=== PATIENT | female | born 1960 | race American Indian/Alaskan Native ===

== ENCOUNTER 2016-05-30 11:09 | Inpatient (IN) | payer SELFPAY ==
--- NOTE | 2016-05-30 11:32 | Emergency Department Report ---
Chief Complaint: Chest Pain Stated Complaint: CHEST PAIN Time Seen by Provider: 05/30/16 11:29 - HPI History of Present Illness: 56 y/o female complain of chest pain x 2 days .pt complain of nausea with headache and dizziness at present . - ROS Review of Systems: Per HPI - Exam Vital Signs: Vital Signs 05/30/16 11:22 Temperature 98.3 F Pulse Rate 85 Respiratory 26 H Rate Blood Pressure 152/89 O2 Sat by Pulse 100 Oximetry Physical Exam: GENERAL: The patient is well-developed and well-nourished. Patient is in NAD. HENT: Normocephalic. Atraumatic. Patient has moist mucous membranes. Throat: No erythema, swelling or exudates. EYES: Extraocular motions are intact, PERRL NECK: Supple. No meningitic signs are noted. There is no adenopathy noted. CHEST/LUNGS: Clear to auscultation bilaterally. No wheezing, rales or rhonchi noted. There is no respiratory distress noted. HEART/CARDIOVASCULAR: Regular rate and rhythm. Normal S1 S2. No murmurs, rubs , clicks, or gallops. ABDOMEN: Abdomen is soft, nontender.. Bowel sounds normoactive. There is no abdominal distention. Negative rebound tenderness. : Deferred. SKIN: There is no rash. There is no edema. There is no diaphoresis. NEURO: The patient is A&Ox3. The patient has no focal neurologic deficits. MUSCULOSKELETAL: There is no tenderness or deformity. There is no limitation range of motion. PSYCH: Pt has appropriate mood and affect. MSE screening note: Focused history and physical exam performed. Due to findings the following was ordered: ED Disposition for MSE Condition: Stable
[2016-05-30 11:53] LABS: Basophils % (Auto) 0.2 % (0.0-1.8); Eosinophils % (Auto) 1.6 % (0.0-4.3); Hematocrit 39.1 % (30.3-42.9); Hemoglobin 12.8 gm/dl (10.1-14.3); Mean Corpuscular HGB Conc 33 % (30-34); Mean Corpuscular Hemoglobin 27 pg (28-32); Mean Corpuscular Volume 84 fl (79-97); Platelet Count 266 K/mm3 (140-440); Red Blood Count 4.69 M/mm3 (3.65-5.03); Red Cell Distribution Width 15.2 % (13.2-15.2)
[2016-05-30 12:08] LABS: Anion Gap 20 mmol/L; Blood Urea Nitrogen 16 mg/dL (7-17); Calcium 9.6 mg/dL (8.4-10.2); Carbon Dioxide 27 mmol/L (22-30); Chloride 98.4 mmol/L (98-107); Glucose 96 mg/dL (65-100); Potassium 4.3 mmol/L (3.6-5.0); Sodium 141 mmol/L (137-145)
--- NOTE | 2016-05-30 12:14 | XRay Report ---
Chest 2 views. Findings: The heart and pulmonary vessels are normal. The lungs are clear. There is no pleural fluid. Impression: No acute findings.
[2016-05-30] MEDS ORDERED: TYLENOL ONE (21:49)
[2016-05-30] MEDS ORDERED: TYLENOL PO ONE (21:52)
[2016-05-30] MEDS ORDERED: ALUM-MAG HYDROX-SIMETH 200-200-20MG/5ML PO ONE (23:28)
[2016-05-30] MEDS ORDERED: MORPHINE IV ONE (23:28)
[2016-05-30] MEDS ORDERED: PEPCID IV ONE (23:28)
--- NOTE | 2016-05-30 23:29 | Emergency Department Report ---
ED General Adult HPI - General Chief complaint: Chest Pain Stated complaint: CHEST PAIN Time Seen by Provider: 05/30/16 23:18 Source: patient, RN notes reviewed Mode of arrival: Ambulatory Limitations: No Limitations - History of Present Illness Initial comments: This is a 56-year-old female, previously unknown to me. She has a past medical history of GERD, obesity, small bowel infection, possible hypertension. The patient presents to the ER complaining of chest pain. The chest pain is central. It radiates to the left upper extremity. It is associated with nausea , shortness of breath and diaphoresis. There is no leg pain. There is no leg swelling. No recent trips greater than 4 hours. No recent hospitalizations. No recent stress test. Does not use cocaine. Doesn't have a family history of heart disease that she is aware of. Patient has no lower abdominal pain, she is defecating normally. -: Gradual Location: chest Severity scale (0 -10): 6 Consistency: intermittent Improves with: rest Worsens with: movement Associated Symptoms: chest pain, diaphoresis, loss of appetite, malaise, nausea/ vomiting, shortness of breath, weakness - Related Data Home Medications Medication Instructions Recorded Confirmed Last Taken Esomeprazole Magnesium [Nexium] 40 mg PO DAILY 07/09/13 05/31/16 04/10/15 HCTZ 12.5 mg PO DAILY 05/31/16 05/31/16 Unknown Allergies Allergy/AdvReac Type Severity Reaction Status Date / Time No Known Allergies Allergy Verified 04/11/15 02:58 ED Review of Systems ROS: Stated complaint: CHEST PAIN Other details as noted in HPI Constitutional: diaphoresis, malaise, weakness Eyes: denies: eye discharge ENT: denies: epistaxis Respiratory: cough Cardiovascular: chest pain Gastrointestinal: nausea Genitourinary: as per HPI Musculoskeletal: denies: back pain Neurological: weakness Psychiatric: as per HPI, anxiety ED Past Medical Hx - Past Medical History Previous Medical History?: Yes Hx GERD: Yes Additional medical history: gastritis, SBO - Surgical History Past Surgical History?: Yes Hx Cholecystectomy: Yes Additional Surgical History: Hysterectomy - Social History Smoking Status: Never Smoker Substance Use Type: Non Opiate Pain, Prescribed - Medications Home Medications: Home Medications Medication Instructions Recorded Confirmed Last Taken Type Esomeprazole Magnesium [Nexium] 40 mg PO DAILY 07/09/13 05/31/16 04/10/15 History HCTZ 12.5 mg PO DAILY 05/31/16 05/31/16 Unknown History ED Physical Exam - General Limitations: No Limitations General appearance: obese - Head Head exam: Present: atraumatic, normocephalic - Eye Eye exam: Present: normal appearance, EOMI. Absent: nystagmus - ENT ENT exam: Present: normal exam, normal orophraynx, mucous membranes moist - Neck Neck exam: Present: normal inspection, full ROM. Absent: tenderness, meningismus - Respiratory Respiratory exam: Present: normal lung sounds bilaterally, chest wall tenderness. Absent: respiratory distress, wheezes, rales, rhonchi, stridor - Cardiovascular Cardiovascular Exam: Present: regular rate, normal rhythm, normal heart sounds. Absent: bradycardia, tachycardia, irregular rhythm, systolic murmur, diastolic murmur, rubs, gallop - GI/Abdominal GI/Abdominal exam: Present: soft, normal bowel sounds. Absent: distended, tenderness, guarding, rebound, rigid, pulsatile mass - Extremities Exam Extremities exam: Present: normal inspection, full ROM, normal capillary refill. Absent: tenderness, pedal edema, joint swelling, calf tenderness - Back Exam Back exam: Present: normal inspection, full ROM. Absent: tenderness, CVA tenderness (R), CVA tenderness (L), muscle spasm, paraspinal tenderness, vertebral tenderness - Neurological Exam Neurological exam: Present: alert, oriented X3, other (Extraocular movements intact. Tongue midline. No facial droop. Facial sensation intact to light touch in the V1, V2, V3 distribution bilaterally. 5 and 5 strength in 4 extremities.. Sensation is intact to light touch in 4 extremities.). Absent: motor sensory deficit - Psychiatric Psychiatric exam: Present: normal affect, normal mood - Skin Skin exam: Present: warm, dry, intact, normal color. Absent: rash ED Course Vital Signs 05/30/16 05/30/16 05/30/16 11:22 21:48 23:49 Temperature 98.3 F 98.0 F Pulse Rate 85 64 64 Respiratory 26 H 18 16 Rate Blood Pressure 152/89 156/91 Blood Pressure 125/60 [Left] O2 Sat by Pulse 100 98 95 Oximetry 05/31/16 05/31/16 00:39 01:26 Temperature Pulse Rate 80 75 Respiratory 16 Rate Blood Pressure 148/70 Blood Pressure 107/63 [Left] O2 Sat by Pulse 95 Oximetry - Reevaluation(s) Reevaluation #1: 05/31/16 00:19 Differential diagnosis: Costochondritis, GERD/reflux, acute coronary syndrome, pneumonia Assessment and plan: 56-year-old obese -[place] female with probable hypertension with concerning chest pain symptoms and markedly abnormal EKG, without prior for comparison. There are no pulmonary embolus or DVT risk factors, and she is low risk by well's criteria. I appreciate the fact that the patient has 3 negative troponins, however her description of symptoms is somewhat concerning, her initial EKG demonstrated a left axis, with nonspecific T-wave abnormality, and left anterior fascicular block. A repeat EKG demonstrated the same thing, with some prominent T-wave inversions in the anteroseptal leads. Given her clinical ambiguity, and nonspecific dynamic EKG findings, she will be admitted for a chest pain ACS risk stratification. The Hospital physician, Dr. Wren, accepts the patient to his service. ED Medical Decision Making - Lab Data Result diagrams: 05/30/16 11:36 05/30/16 11:36 Vital Signs 05/30/16 05/30/16 05/30/16 11:22 21:48 23:49 Temperature 98.3 F 98.0 F Pulse Rate 85 64 64 Respiratory 26 H 18 16 Rate Blood Pressure 152/89 156/91 Blood Pressure 125/60 [Left] O2 Sat by Pulse 100 98 95 Oximetry Lab Results 05/30/16 05/30/16 05/30/16 Range/Units 11:36 11:36 15:07 WBC 9.0 (4.5-11.0) K/mm3 RBC 4.69 (3.65-5.03) M/mm3 Hgb 12.8 (10.1-14.3) gm/dl Hct 39.1 (30.3-42.9) % MCV 84 (79-97) fl MCH 27 L (28-32) pg MCHC 33 (30-34) % RDW 15.2 (13.2-15.2) % Plt Count 266 (140-440) K/mm3 Lymph % (Auto) 34.1 (13.4-35.0) % Tyler % (Auto) 8.4 H (0.0-7.3) % Eos % (Auto) 1.6 (0.0-4.3) % Baso % (Auto) 0.2 (0.0-1.8) % Lymph # 3.1 (1.2-5.4) K/mm3 Tyler # 0.8 (0.0-0.8) K/mm3 Eos # 0.1 (0.0-0.4) K/mm3 Baso # 0.0 (0.0-0.1) K/mm3 Seg Neutrophils % 55.7 (40.0-70.0) % Seg Neutrophils # 5.0 (1.8-7.7) K/mm3 Sodium 141 (137-145) mmol/L Potassium 4.3 (3.6-5.0) mmol/L Chloride 98.4 (98-107) mmol/L Carbon Dioxide 27 (22-30) mmol/L Anion Gap 20 mmol/L BUN 16 (7-17) mg/dL Creatinine 1.0 (0.7-1.2) mg/dL Estimated GFR > 60 ml/min BUN/Creatinine Ratio 16.00 % Glucose 96 (65-100) mg/dL Calcium 9.6 (8.4-10.2) mg/dL Troponin T < 0.010 < 0.010 (0.00-0.029) ng/mL 05/30/16 Range/Units 18:18 WBC (4.5-11.0) K/mm3 RBC (3.65-5.03) M/mm3 Hgb (10.1-14.3) gm/dl Hct (30.3-42.9) % MCV (79-97) fl MCH (28-32) pg MCHC (30-34) % RDW (13.2-15.2) % Plt Count (140-440) K/mm3 Lymph % (Auto) (13.4-35.0) % Tyler % (Auto) (0.0-7.3) % Eos % (Auto) (0.0-4.3) % Baso % (Auto) (0.0-1.8) % Lymph # (1.2-5.4) K/mm3 Tyler # (0.0-0.8) K/mm3 Eos # (0.0-0.4) K/mm3 Baso # (0.0-0.1) K/mm3 Seg Neutrophils % (40.0-70.0) % Seg Neutrophils # (1.8-7.7) K/mm3 Sodium (137-145) mmol/L Potassium (3.6-5.0) mmol/L Chloride (98-107) mmol/L Carbon Dioxide (22-30) mmol/L Anion Gap mmol/L BUN (7-17) mg/dL Creatinine (0.7-1.2) mg/dL Estimated GFR ml/min BUN/Creatinine Ratio % Glucose (65-100) mg/dL Calcium (8.4-10.2) mg/dL Troponin T < 0.010 (0.00-0.029) ng/mL - EKG Data When compared to previous EKG there are: previous EKG unavailable 05/31/16 00:22 EKG #1 demonstrates normal sinus, 76 bpm, left axis deviation, borderline left ventricular hypertrophy, nonspecific T-wave abnormality, not consistent with stemi sinus bradycardia, 59 bpm, left axis deviation, left anterior fascicular block, flattened T-wave in V2, T-wave inversion V3, V4, V5 and V6. - Radiology Data Radiology results: report reviewed, image reviewed X-ray chest within normal limits /negative for acute disease Critical care attestation.: If time is entered above; I have spent that time in minutes in the direct care of this critically ill patient, excluding procedure time. ED Disposition Clinical Impression: Chest pain, Abnormal EKG Disposition: OP ADMITTED IP TO THIS HOSP Is pt being admited?: Yes Condition: Good
[2016-05-31] MEDS ORDERED: BABY ASPIRIN PO ONE (00:21)
[2016-05-31] MEDS: NITROSTAT SL PRN ×2 (00:39→06:01)
--- NOTE | 2016-05-31 01:00 | Event Note ---
Date: 05/31/16
[2016-05-31] MEDS ORDERED: DILAUDID IV PRN (01:06)
[2016-05-31] MEDS ORDERED: DULCOLAX PR PRN (01:06)
[2016-05-31] MEDS ORDERED: ZOFRAN IV PRN (01:06)
[2016-05-31] MEDS ORDERED: TYLENOL PO PRN (01:06)
[2016-05-31] MEDS ORDERED: MILK OF MAGNESIA PO PRN (01:06)
[2016-05-31] MEDS ORDERED: MORPHINE IV ONE (01:09)
[2016-05-31] MEDS ORDERED: SODIUM CHLORIDE FLUSH SYRINGE 10 ML IV PRN (01:10)
[2016-05-31] MEDS ORDERED: ZOFRAN IV ONE (01:10)
[2016-05-31] MEDS ORDERED: MORPHINE ONE (01:11)
[2016-05-31 02:05] LABS: Creatine Kinase MB 1.3 ng/mL (0.0-4.0)
[2016-05-31 02:06] LABS: Creatine Kinase 93 units/L (30-135)
[2016-05-31] MEDS ORDERED: PEPCID IV ONE (02:34)
--- NOTE | 2016-05-31 02:35 | Admit Criteria Form ---
Admission Criteria Documentation: CARDIOLOGY GRG Clinical Indications for Admission to Inpatient Care ( Place 'X' for any and all applicable criteria): Hospital admission is needed for appropriate care of the patient because of ANY ONE of the following (1): [ ] I. Hemodynamic instability as indicated by ALL of the following (1)(2)(3) (4)(5) [ ]a) Vital signs or other findings not as expected for chronic patient condition or baseline [ ]b) Instability indicated by ANY ONE of the following: [ ]i) Hypotension [ ]ii) Symptomatic Tachycardia unresponsive to treatment ( e.g., analgesia, fluids, sedation as indicated) [ ]iii) Inadequate perfusion indicated by ANY ONE of the following: [ ] 1) Lactic acidosis (> 2 mmol/L) [ ] 2) New abnormal capillary refill (> 3 seconds) [ ] 3) Reduced urine output [ ] 4) New altered mental status [ ]iv) Orthostatic vital sign changes unresponsive to treatment (e.g., fluids) [ ]v) IV inotropic or vasopressor medication required to maintain adequate blood pressure or perfusion [ ] II. Severe heart failure as indicated by ANY ONE of the following(17)(18) [ ]a) Respiratory distress [ ]b) Hypotension [ ]c) Anasarca (refractory to outpatient therapy) [ ]d) Cardiac arrhythmias of immediate concern [ ]e) Myocardial ischemia [ ] III. Cardiac arrhythmias or findings of immediate concern indicated by ANY ONE of the following (19)(20): [ ] a) Heart rhythms that are inherently dangerous or unstable indicated by ANY ONE of the following (21)(22)(23): [ ] i) Resuscitated ventricular fibrillation or cardiac arrest [ ] ii) Ventricular escape rhythm [ ] iii) Sustained ventricular tachycardia (30 seconds or more of ventricular rhythm at greater than 100 beats per minute) [ ] iv) Nonsustained ventricular tachycardia and ANY ONE of the following: [ ] 1) Suspected cardiac ischemia as cause or consequence of ventricular tachycardia [ ] 2) In setting of acute myocarditis [ ] b) Unstable cardiac conduction defects indicated by ANY ONE of the following(23)(24)(25) [ ] i) Type II second-degree atrioventricular block [ ]ii) Third-degree atrioventricular block [ ]iii) New-onset left bundle branch block with suspected myocardial ischemia [ ]c) Any heart rhythm and ANY ONE of the following (21)(22)(26)(27) (28) [ ] i) Continuous long-term ECG monitoring needed (e.g., initiation of drug requiring monitoring for more than 24 hours) [ ] ii) Patient has automatic implanted cardioverter defibrillator that is repeatedly firing, malfunctioning, or in need of immediate adjustment of settings beyond the scope of ambulatory or observation care [ ]d) Heart rhythms of concern due to ANY ONE of the following: [ ] i) Hypotension [ ] ii) Respiratory distress [ ] iii) Association with other significant symptoms (e.g., bradycardia with syncope or ongoing dizziness, supraventricular tachycardia with chest pain (14)(15)(17) [ ] IV. Monitoring for cardiac contusion beyond the scope of observation care needed [A](30)(31)(32) [ ] V. Surgical or device complication (e.g., valve replacement complication , pacemaker dysfunction) (35)(41)(44)(45)(46) [ ] . Inpatient palliative care needed. [B](49) Also use Inpatient Palliative Care Criteria [ ] VII. Nonbacterial thrombotic (marantic) endocarditis (36)(43)(47)(48) [ X] VIII. Cardiology condition, symptom, or finding for which emergency and observation care has failed or are not considered appropriate. [ ] IX. Acute valvular disease requiring inpatient as indicated by ANY ONE of the following (41) [ ]a) Acute valvular regurgitation (42) [ ]b) Noninfectious valvulitis (43) [ ]c) Obstructive valve thrombosis [ ]d) Paravalvular leak [ ]e) Other significant valvular disorder remaining after emergency or observation level of care (as appropriate) [ ]X. Pericardial disease requiring inpatient treatment as indicated by ANY ONE of the following (33)(34)(35)(36)(37) [ ]a) Suspected tamponade (38)(39)(40) [ ]b) Hemopericardium [ ]c) Other significant pericardial disorder remaining after emergency or observation level of care (as appropriate) [ ] XI. Cardiac ischemia beyond scope of emergency and observation care. [ ] XII. Hypertension requiring inpatient treatment as indicated by ANY ONE of the following (6)(7)(8) [ ]a) SBP greater than 220 mm Hg or DBP greater than 120 mmHg despite treatment [ ]b) SBP greater than 140 mm Hg or DBP greater than 100 mm Hg with evidence of acute end organ damage as indicated by ANY ONE of the following [ ] i) Altered mental status [ ] ii) Acute renal failure as indicated by new onset of ANY ONE of the following (9)(10)(11)(12)(13) [ ]1) 3-fold rise in serum creatinine from baseline [ ]2) Serum creatinine greater than 4 mg/dL ( 354 micromoles/L) with acute rise greater than 0.5 mg/dL (44.2 micromoles/L) [ ]3) Reduction of more than 75% in estimated glomerular filtration rate from baseline [ ]4) Estimated glomerular filtration rate less than 35 mL/min/1.73m2 (0.59 mL/sec/1.73m2) in child up to 18 years of age [ ]5) Cessation of urine output indicated by ALL of the following [ ]A. Adequate volume status [ ]B. Inadequate urine output as indicated by ANY ONE of the following [ ]a. Urine output less than 0.3 mL/kg/hr for 24 hours [ ]b. Anuria (urine output less than 0.1 mL/kg/hr) for 12 hours [ ] iii) Aortic dissection [ ] iv) Myocardial Ischemia [ ] v) Left ventricular heart failure [ ]vi) Retinal Hemorrhage [ ]vii) Other significant finding [ ]c) Hypertension in child requiring inpatient treatment as indicated by ALL of the following(14)(15)(16) [ ] i) Outpatient treatment not effective, not available, or not appropriate [ ]ii) SBP or DBP greater than 95th percentile for age [ ]iii) Evidence of acute end organ damage as indicated by ANY ONE of the following [ ]1) Altered mental status [ ]2) Acute renal failure as indicated by new onset of ANY ONE of the following(9)(10)(11)(12)(13) [ ]A. 3-fold rise in serum creatinine from baseline [ ]B. Serum creatinine greater than 4 mg/dL (354 micromoles/L) with acute rise greater than 0.5 mg/dL (44.2 micromoles/L) [ ]C. Reduction of more than 75% in estimated glomerular filtration rate from baseline [ ]D. Estimated glomerular filtration rate less than 35 mL/min/1.73m2 (0.59 mL/sec/1.73m2) in child up to 18 years of age [ ]E. Cessation of urine output indicated by ALL of the following [ ]a. Adequate volume status [ ]b. Inadequate urine output as indicated by ANY ONE of the following [ ]i) Urine output less than 0.3 mL/kg/hr for 24 hours [ ]ii) Anuria ( urine output less than 0.1 mL/kg/hr) for 12 hours [ ]3) Severe headache [ ]4) Visual disturbance [ ]5) Retinal hemorrhage [ ]6) Other significant finding [ ]XIII. Complications of transplanted heart indicated by ANY ONE of the following(61): [ ]a) Acute graft rejection requiring inpatient management (eg, intravenous immunosuppression)(62)(63) [ ]b) Acute graft heart failure indicated by ANY ONE of the following(64): [ ]i) Hemodynamic instability [ ]ii) Cardiac arrhythmias of immediate concern [ ]iii) Pulmonary edema that is very severe (eg, mechanical ventilation needed, imminent or likely, need for 100% oxygen to keep oxygen saturation above 90%) [ ]iv) Pulmonary edema that is persistent as indicated by ALL of the following: [ ]1) New need for oxygen therapy to keep oxygen saturation above 90% (or increased FiO2 need from baseline) [ ]2) Has not improved sufficiently with emergency department or observation care IV diuretics or other heart failure treatments[E] [ ]v) Altered mental status that is severe or persistent [ ]vi) Increased creatinine (new on laboratory test) with reduction of more than 50% in estimated glomerular filtration rate from baseline [ ]vii) Progressively (ongoing) rising creatinine (known from past laboratory test) with reduction of more than 25% in estimated glomerular filtration rate from baseline [ ]viii) Acute renal failure [ ]ix) Acute peripheral ischemia (eg, examination shows pulseless, cool, mottled, or cyanotic extremity) [ ]x) Pulmonary artery catheter monitoring needed [ ]xi) Other sign or symptom of heart failure requiring inpatient treatment (ie, too severe or not responsive to outpatient and observation care treatment) [ ]c) Infection requiring inpatient management (eg, Hemodynamic instability, need for intravenous antimicrobial treatment)(66)(67)(68)(69)(70) [ ]d) Cardiac allograft vasculopathy requiring inpatient management ( eg evidence of cardiac ischemia)(71) [ ]e) Other complication of transplanted heart (eg, stroke, severe pulmonary hypertension, severe valvular dysfunction) requiring inpatient management(72) The original [facility] [employer] content created by [employer] [employer] has been revised. The portions of the content which have been revised are identified through the use of italic text or in bold, and [facility] has neither reviewed nor approved the modified material. All other unmodified content is copyright [facility] [employer]. Please see references footnoted in the original [facility] [employer] edition 2016 Admission Criteria Met: Yes
[2016-05-31] MEDS: PEPCID IV SCH ×2 (02:50→10:36)
--- NOTE | 2016-05-31 02:52 | History and Physical Report ---
CHIEF COMPLAINT: Left-sided chest pain. HISTORY OF PRESENT ILLNESS: A 56-year-old female with history of GERD, obesity, small bowel infection, borderline hypertension, comes in for chest pain. Chest pain is central. ____ the left upper extremity. Pain is about 7 on a scale of 1 to 10. No palpitations. No diaphoresis. No shortness of breath. No recent trips greater than 4 hours. No recent hospitalizations. NAA score is 0. PAST MEDICAL HISTORY: Significant for gastric esophageal reflux disease. CURRENT MEDICATIONS: Nexium 40 mg p.o. daily. PAST SURGICAL HISTORY: Cholecystectomy and hysterectomy. SOCIAL HISTORY: Does not smoke. No alcohol, no recreational drugs. FAMILY HISTORY: Significant for hypertension. REVIEW OF SYSTEMS: CONSTITUTIONAL: No weight loss, no weight gain. No fever, no chills. HEENT: No sore throat. No postnasal drip. CVS: Chest pain present. No shortness of breath. No palpitations. RESPIRATORY SYSTEM: No wheezing, no cough productive of yellow sputum. GASTROINTESTINAL: No nausea, no vomiting, no diarrhea. EXTREMITIES: No swelling or rashes. Good joint movement as per the patient. CENTRAL NERVOUS SYSTEM: No syncope, no seizures. SKIN: No rashes. HEMATOLOGY/ONCOLOGY: No recent vascular studies. No lymphadenopathy. No easy bruit. ENDOCRINE: No high sugars. REVIEW OF SYSTEMS: A 14-point review of systems done. Otherwise, negative other than the chest pain. PHYSICAL EXAMINATION: GENERAL: Middle-aged female, cooperative during examination. VITAL SIGNS: Blood pressure is 152/89, temperature is 98.3, pulse is 85, respiratory rate is 26, O2 sat is 100%. HEENT: Unremarkable. Pupils equal and reactive. NECK: Supple. No lymphadenopathy, no thyromegaly. LUNGS: Clear to auscultation and percussion. Chest tenderness present and chest wall tenderness especially in the second, third, and fourth costochondral junctions on the left side. Also, slightly on the right side. CARDIOVASCULAR: S1, S2 heard. No gallop, no murmur, no rub. Apical impulse in left fifth intercostal space and midclavicular line. ABDOMEN: Soft and benign. No hepatosplenomegaly, no guarding, no rigidity. Hernial orifices are normal. EXTREMITIES: Good pedal pulses. No pedal edema. Good range of motion. CENTRAL NERVOUS SYSTEM: No focal deficits. Motor system, sensory system normal. Cranial nerves are normal. Touch vibration sounds are normal. Pain sensation normal. LABORATORY DATA: White count is 9000, H and H are 12.8 and 39.1, platelet count is 266,000. Sodium is 141, potassium is 4.3, chloride is 98.4, bicarbonate is 27, BUN and creatinine are 16 and 1.0. Glucose is 98. First troponin is less than 0.010. EKG demonstrates normal sinus rhythm, 76 per minute, left axis deviation, borderline LVH. Nonspecific T-wave abnormalities. Not consistent with STEMI. Chest x-ray within normal limits. ASSESSMENT AND PLAN: 1. Chest pain, rule out myocardial infarction, chest pain protocol. There is some chest wall tenderness, more . Serial cardiac enzymes and Lexiscan in the morning. 2. Gastroesophageal reflux disease. Continue Nexium 40 mg daily. 3. Deep venous thrombosis prophylaxis, Lovenox 40 mg subcutaneous daily. [facility]# [id number] VSM/NTS
[2016-05-31 07:14] LABS: Creatine Kinase MB 1.3 ng/mL (0.0-4.0)
[2016-05-31 07:16] LABS: Creatine Kinase 89 units/L (30-135)
[2016-05-31] MEDS ORDERED: LEXISCAN IV ONE (08:32)
[2016-05-31] MEDS ORDERED: PROTONIX PO ONE (09:51)
[2016-05-31] MEDS ORDERED: LOVENOX SUB-Q ONE (09:51)
[2016-05-31] MEDS ORDERED: PROTONIX PO SCH (10:00)
[2016-05-31] MEDS ORDERED: LOVENOX SUB-Q SCH (10:00)
[2016-05-31] MEDS ORDERED: DILAUDID ONE (10:38)
--- NOTE | 2016-05-31 12:36 | Treadmill Report ---
INDICATION FOR PROCEDURE: Chest pain. FINDINGS: There is no scintigraphic evidence of myocardial ischemia. The left ventricle is normal in size and systolic function. The left ventricular ejection fraction is measured at 66%. Normal wall motion and wall thickening is noted on gated imaging. CONCLUSION: Normal perfusion scan. JOB# [id number] MIGUEL/VANE
[2016-05-31 17:14] VITALS: BP 148/77
--- NOTE | 2016-05-31 18:19 | Discharge Summary ---
Providers - Providers Date of Admission: 05/30/16 23:52 Date of discharge: 05/31/16 Attending physician: ROBERT CAMARA 05/31/16 Consult to Cardiac Rehabilitation [CONS] Routine Reason For Exam: Phase I Primary care physician: ENGAGEMENT MANAGER Hospitalization Reason for admission: chest pain Condition: Good Pertinent studies: Chest x-ray MPI Hospital course: Patient is a 56 years old obese -[place] Citizen female with hypertension presented to the ER complaining of chest pain. Acute coronary syndrome was excluded based on EKG, serial cardiac enzymes and negative stress test. Her pain is intermittent and aggravated by eating; most likely secondary to GERD; started on PPI and discharge in stable condition with PCP follow-up. Counseled regarding dietary changes, losing weight and lifestyle change. Discharge diagnosis: 1. Chest pain was likely secondary to GERD 2. Hypertension 3. Obesity Disposition: DISCHARGED TO HOME OR SELFCARE Time spent for discharge: 35 minutes Core Measure Documentation - Palliative Care Palliative Care/ Comfort Measures: Not Applicable - Core Measures Any of the following diagnoses?: none Exam - Physical Exam Narrative exam: Patient seen and examined: - Constitutional Vitals: Temp Pulse Resp BP Pulse Ox 98.9 F 72 20 148/77 95 05/31/16 16:12 05/31/16 16:12 05/31/16 16:12 05/31/16 16:12 05/31/16 16:12 General appearance: Present: no acute distress, obese - EENT Eyes: Present: PERRL, EOM intact. Absent: scleral icterus, conjunctival injection - Neck Neck: Present: supple, normal ROM. Absent: masses or JVD - Respiratory Respiratory effort: normal Respiratory: bilateral: CTA, negative: rhonchi, wheezing - Cardiovascular Rhythm: regular Heart Sounds: Present: S1 & S2. Absent: systolic murmur - Extremities Extremities: no ischemia - Abdominal General gastrointestinal: Present: soft, non-tender, non-distended, normal bowel sounds - Integumentary Integumentary: Present: warm, dry. Absent: jaundice, rash - Psychiatric Psychiatric: cooperative - Neurologic Neurologic: CNII-XII intact, no focal deficits Plan Activity: advance as tolerated Diet: low cholesterol, low salt Follow up with: PRIMARY CARE, [Primary Care Provider] - 14 Days Prescriptions: HCTZ 12.5 mg PO DAILY #30 Pantoprazole [Protonix TAB] 40 mg PO DAILY #30 tablet
== END 2016-05-31 19:23 | disposition home or self-care (01) | DRG 392 ==
LOC: ED 11:09 → 4A 23:52
PROVIDERS: ADMIT Internal Medicine; ATTEND Internal Medicine
DX: K21.9 Gastro-esophageal reflux disease without esophagitis (principal); E66.9 Obesity, unspecified; I10 Essential (primary) hypertension; Z68.38 Body mass index [BMI] 38.0-38.9, adult; Z86.19 Personal history of other infectious and parasitic diseases; Z79.899 Other long term (current) drug therapy; Z90.710 Acquired absence of both cervix and uterus; Z90.49 Acquired absence of other specified parts of digestive tract; Z71.3 Dietary counseling and surveillance; Z82.49 Family history of ischemic heart disease and other diseases of the circulatory system
CPT/HCPCS: 36415; 71020; 78452; 80048; 82550; 82553; 84484; 85025; 93005; 93010; 93017; 96372; 96374; 96375; A9502; J1170; J1650; J2270; J2405; J2785